=== PATIENT | female | born 1965 | race Caucasian/White ===

== ENCOUNTER 2023-10-31 11:45 | Observation (INO) | payer BC, SELFPAY ==
[2023-10-31] VITALS (33 sets, daily range): BP systolic 133–179; BP diastolic 75–120; PULSE 63–82; RESP 11–23; TEMP 36.1–36.8; O2SAT 95–100; BMI 49.4
--- NOTE | ~2023-10-31 | CT_ITS ---
EXAMINATION: CT abdomen pelvis w con DATE: 11/01/2023 09:14 INDICATION: Metastatic disease TECHNIQUE: Computed tomography (CT) of the abdomen and pelvis was performed with 100 cc Omnipaque 350 intravenous contrast. The dose-length product was 1687.26 mGy-cm. Automated exposure control and ite rative reconstruction technique were employed. COMPARISON: CT dated 10/31/2023. FINDINGS: There are innumerable pulmonary nodules in the lung bases, consistent with metastatic disea se. There is hilar and subcarinal lymphadenopathy. There are enlarged gastrohepatic and portacaval as well as retroperitoneal lymph nodes in the upper abdomen. There are multiple hypovascular lesions of the spleen, suspicious for metastatic disease. Fatty infiltration of the liver. No focal hepatic mas ses. The pancreas is atrophic. The adrenal glands and kidneys are unremarkable. Status post cholecyst ectomy. Nonobstructive bowel gas pattern. Normal appendix. Colonic diverticulosis without evidence fo r diverticulitis. Mild lower thoracic and lumbar spondylosis. IMPRESSION: 1. Innumerable bilateral pulmonary nodules of the lung bases, mediastinal/hilar lymphadenopathy, uppe r abdominal lymphadenopathy and multiple hypovascular lesions of the spleen, compatible with metastat ic disease of uncertain origin. Reviewed, dictated and finalized at location B. ERY CONTAINER FINISHING HAND IMPRESSION: 1. Innumerable bilateral pulmonary nodules of the lung bases, mediastinal/hilar lymphadenopathy, upper abdominal lymphadenopathy and multiple hypovascular les ions of the spleen, compatible with metastatic disease of uncertain origin.
--- NOTE | ~2023-10-31 | CT_ITS ---
EXAMINATION: CTA chest PE protocol DATE: 10/31/2023 13:50 COOK VACUUM KETTLE INDICATION: Chest pain TECHNIQUE: Computed tomographic angiography (CTA) of the chest was performed with 100 mL Omnipaque-35 0 intravenous contrast. The dose-length product was 915.85 mGy-cm. Maximum intensity projection 3D-re constructions of the aorta and other arteries were constructed by the technologist on a separate work station. Automated exposure control and iterative reconstruction technique were employed. COMPARISON: Chest dated 10/31/2023 FINDINGS: Study is technically adequate without evidence for pulmonary embolism. Heart size normal. S mall hiatal hernia with thickening of the distal esophagus. There is mediastinal and hilar lymphadeno john. There are abnormal lymph nodes in the prevascular space. No significant pleural or pericardial effusion. There is pancreatic atrophy. There is lymphadenopathy along the gastrohepatic ligament, po rtacaval, periaortic locations. Status post cholecystectomy. There are in numerable pulmonary nodules bilaterally. Mild thoracic spondylosis with accentuated kyphosis. IMPRESSION: 1. Innumerable small bilateral pulmonary nodules bilaterally, consistent with metastatic disease. The re is mediastinal, bilateral hilar and upper abdominal lymphadenopathy as well, also suspicious for m etastatic disease. Correlate for history of known malignancy. 2: No evidence for pulmonary embolism. Reviewed, dictated and finalized at location L. VACUUM KETTLE IMPRESSION: 1. Innumerable small bilateral pulmonary nodules bilaterally, consistent with m etastatic disease. There is mediastinal, bilateral hilar and upper abdominal ly mphadenopathy as well, also suspicious for metastatic disease. Correlate for hi story of known malignancy. 2: No evidence for pulmonary embolism.
--- NOTE | ~2023-10-31 | XR_ITS ---
XR chest 2V 10/31/2023 12:52 Indication: Left-sided chest pain. Hypertension. Procedure: AP and lateral views of the chest Comparison: No prior studies for comparison. Findings: Heart size normal. There is mild interstitial edema. No pleural effusion or pneumothorax. N o acute osseous abnormality. Impression: 1: Mild interstitial edema. Reviewed, dictated and finalized at location L. IN HOUSEKEEPER NANNY Impression: 1: Mild interstitial edema.
--- NOTE | 2023-10-31 11:47 | ECG_ITS ---
Measurements Intervals [place] Rate: 65 P: 50 SC: 165 QRS: 7 QRSD: 94 T: 75 QT: 430 QTc: 447 Interpretive Statements SINUS RHYTHM DELAYED PRECORDIAL R/S TRANSITION LEFT VENTRICULAR HYPERTROPHY WITH ST-T CHANGE CONSIDER INFERIOR INFARCT, AGE INDETERMINATE ABNORMAL ECG NO PREVIOUS ECG AVAILABLE FOR COMPARISON Electronically Signed On 10-31-2023 12:49:01 STEEL FABRICATOR by Renaldo Doherty D.O.
[2023-10-31 12:07] LABS: Basophils Absolute Auto 0.1 K/mm3 (0.0-0.1); Basophils Percent Auto 0.8 % (0.2-1.2); Eosinophils Absolute Auto 0.4 K/mm3 (0-0.3); Eosinophils Percent Auto 4.1 % (0-4.4); Hematocrit 41.2 % (37.0-47.0); Hemoglobin 13.4 g/dL (12.0-15.0); Immature Granulocyte Absolute 0.02 K/mm3 (0.00-0.031); Immature Granulocyte Percent A 0.2 % (0-0.5); Lymphocytes Absolute Auto 3.42 K/mm3 (0.9-3.2); Lymphocytes Percent Auto 35.4 % (18.3-44.2); Mean Corpuscular HGB Conc 32.5 g/dl (32-36); Mean Corpuscular Hemoglobin 28.5 pg (26-34); Mean Corpuscular Volume 87.7 fl (80-100); Monocytes Absolute Auto 0.9 K/mm3 (0.1-0.6); Monocytes Percent Auto 9.2 % (2.6-8.5); Neutrophils Absolute Auto 4.9 K/mm3 (1.3-6.7); Neutrophils Percent Auto 50.3 % (45.5-73.1); Platelet Count Result 394 k/mm3 (150-375); Red Cell Distribution Width 13.3 % (11.5-14.5); White Blood Count 9.7 K/mm3 (4.5-10.0)
[2023-10-31 12:16] LABS: Alanine Aminotransferase 24 U/L (6-35); Albumin Level 4.6 g/dL (3.5-5.1); Alkaline Phosphatase 137 U/L (38-126); Anion Gap 12 mmol/L (8-16); Aspartate Amino Transferase 27 U/L (14-36); Bilirubin,Total 0.5 mg/dL (0.2-1.3); Blood Urea Nitrogen 18 mg/dL (7-17); Calcium 9.6 mg/dL (8.4-10.2); Carbon Dioxide 23 mmol/L (22-30); Chloride 103 mmol/L (98-107); Estimated CRCL calculation 98 ml/min; Estimated Glomerular Filt Rate > 60; Glucose 125 mg/dL (65-110); Lipase 70 U/L (23-300); Potassium 3.7 mmol/L (3.4-5.0); Sodium 138 mmol/L (137-145)
[2023-10-31 12:22] LABS: Prothrombin Time 13.4 Seconds (11.1-14.7)
[2023-10-31 12:23] LABS: Partial Thromboplastin Time 35.1 SECONDS (22.3-36.8)
[2023-10-31 12:27] LABS: Troponin I < 0.012 ng/mL (0.000-0.034)
--- NOTE | 2023-10-31 12:53 | ED.CHESTPAIN ---
HPI - Chest Pain General Chief Complaint: Chest Pain Stated Complaint: chest pain Time Seen by Provider: 10/31/23 12:09 Source: patient, EMS, RN notes reviewed and old records reviewed Mode of arrival: EMS Limitations: no limitations History of Present Illness HPI narrative: This is a 57 year old female with history of obesity and hypertension who presents for evaluation of chest pain. PAtient states she developed sudden onset midsternal chest pain that radiates to her back. She also reports her left arm went numbness. She took ibuprofen at onset and she denies having any relief. EMS gave patient nitro and aspirin 324 mg PO. She reports her pain has improved to 2/10. MD complaint: chest heaviness Related Data Home Medications Medication Instructions Recorded Confirmed fexofenadine 180 mg tablet 180 mg PO .QD 03/21/23 06/21/23 ([facility]) sumatriptan succinate 100 mg tablet See Rx Instructions PO .COMPLEX 03/21/23 06/21/23 Allergies Allergy/AdvReac Type Severity Reaction Status Date / Time No Known Allergies Allergy Verified 10/31/23 11:55 Review of Systems Constitutional: Constitutional: Denies weakness Cardiovascular: Cardiovascular: Reports chest pain, Denies syncope, Denies rapid heart rate, Denies irregular heart rhythm, Denies leg edema, Reports radiating jaw, neck or arm pain and Denies dyspnea Respiratory: Respiratory: Denies chest congestion, Denies hemoptysis, Denies excessive phlegm production and Denies dyspnea Gastrointestinal: Gastrointestinal: Denies abdominal pain, Denies hematochezia, Denies diarrhea and Denies vomiting Genitourinary: Genitourinary: Denies hematuria and Denies dysuria Musculoskeletal: Musculoskeletal: Denies joint swelling, Denies loss of height and Denies muscle weakness Neurologic: Denies syncope, Denies focal weakness and Denies weakness PMFSH Past Medical History Medical History BMI 45.0-49.9, adult Hypertension Surgical History Surgical History H/O tooth extraction History of cholecystectomy History of eye surgery History of tonsillectomy and adenoidectomy Family History Family History (Updated 06/21/23 @ 08:07 by Jocelyne Donahue Josephine) Father Mother No problems noted. Sibling No problems noted. Other Alcohol abuse Hypertension Social History Social History Smoking status: Never smoker Second hand tobacco smoke exposure: Yes Alcohol intake: current Substance use: never Substance use type: does not use Lack of Transportation: No Lack of Food: Never True Current Housing: I Have Housing Concerned About Future Housing: No Difficulty Paying Gas/Electric Bills: No Difficulty Paying for Meds: No Currently Unemployed: No Education: Trade/Vocational Certificate Difficulty w/ Childcare or Family Care: No Living arrangements: with family Occupation/Education: occupation Additional occupation/education comments: logistics manager Gender identity (if verbalized by the patient): Female Exam Const: General: alert Nutritional Appearance: obese Orientation/consciousness: patient oriented x3 Other: patient is tearful HENMT: Head: normal to inspection Face/Nose/Sinus: Normal external nose present Mouth: Yes Normal oral and palatal mucosa present, Yes lip normal and Yes moist mucous membranes Eyes: EOM: EOMs intact bilaterally Chest: Chest palpation & inspection: normal inspection of the chest Resp: Effort & Inspection: normal respiratory effort Auscultation: clear to auscultation bilaterally Cardio: Rate: regular rate Rhythm: regular rhythm Heart sounds: no murmurs GI: GI Palp: Yes Soft to palpation, No Tenderness to palpation present (GI), No Guarding due to palpation present (GI) and No Rigid due to palpation
[2023-10-31] MEDS: NITROGLYCERIN OINTMENT 1 INCH DOSE TRANSDERM ×2 (13:03→18:21)
[2023-10-31 13:24] LABS: D Dimer 0.61 ug/mL (<0.48)
[2023-10-31 13:51] LABS: NT Pro B Type Natriuretic Pept 250 pg/mL (19.9-100)
[2023-10-31 15:19] LABS: Troponin I < 0.012 ng/mL (0.000-0.034)
[2023-10-31 18:28] LABS: Troponin I < 0.012 ng/mL (0.000-0.034)
--- NOTE | 2023-10-31 20:41 | PM.IMHP ---
H&P: HPI History of Present Illness Date/Time: 10/31/23 20:41 Chief Complaint: Chest pain Narrative: EXAMINATION: CTA chest PE protocol DATE: 10/31/2023 13:50 ELECTROMECHANICAL TECHNICIAN INDICATION: Chest pain TECHNIQUE: Computed tomographic angiography (CTA) of the chest was performed with 100 mL Omnipaque-350 intravenous contrast. The dose-length product was 915.85 mGy-cm. Maximum intensity projection 3D-reconstructions of the aorta and other arteries were constructed by the technologist on a separate workstation. Automated exposure control and iterative reconstruction technique were employed. COMPARISON: Chest dated 10/31/2023 FINDINGS: Study is technically adequate without evidence for pulmonary embolism. Heart size normal. Small hiatal hernia with thickening of the distal esophagus. There is mediastinal and hilar lymphadenopathy. There are abnormal lymph nodes in the prevascular space. No significant pleural or pericardial effusion. There is pancreatic atrophy. There is lymphadenopathy along the gastrohepatic ligament, portacaval, periaortic locations. Status post cholecystectomy. There are in numerable pulmonary nodules bilaterally. Mild thoracic spondylosis with accentuated kyphosis. IMPRESSION: 1. Innumerable small bilateral pulmonary nodules bilaterally, consistent with metastatic disease. There is mediastinal, bilateral hilar and upper abdominal lymphadenopathy as well, also suspicious for metastatic disease. Correlate for history of known malignancy. 2:? No evidence for pulmonary embolism. [facility] Past Medical History Medical History BMI 45.0-49.9, adult Hypertension Surgical History Surgical History H/O tooth extraction History of cholecystectomy History of eye surgery History of tonsillectomy and adenoidectomy Family History Family History (Updated 06/21/23 @ 08:07 by Jocelyne Donahue [facility]) Father Mother No problems noted. Sibling No problems noted. Other Alcohol abuse Hypertension Social History Social History Smoking status: Never smoker Second hand tobacco smoke exposure: Yes Alcohol intake: current Substance use: never Substance use type: does not use Lack of Transportation: No Lack of Food: Never True Current Housing: I Have Housing Concerned About Future Housing: No Difficulty Paying Gas/Electric Bills: No Difficulty Paying for Meds: No Currently Unemployed: No Education: Decline to Answer Difficulty w/ Childcare or Family Care: No Living arrangements: with family Occupation/Education: occupation Additional occupation/education comments: manager transit Gender identity (if verbalized by the patient): Female Spiritual care concerns: No Meds Home Medications and Allergies Home Medications Medication Instructions Recorded Confirmed Type acetaminophen 500 mg tablet 1,000 mg PO Q6H PRN pain/headache 10/31/23 10/31/23 History amlodipine 5 mg tablet 5 mg PO HS hypertension 10/31/23 10/31/23 History gabapentin 600 mg tablet 1,200 mg PO HS 10/31/23 10/31/23 History metoprolol succinate 100 mg 100 mg PO HS 10/31/23 10/31/23 History tablet,extended release 24 hr Allergies Allergy/AdvReac Type Severity Reaction Status Date / Time No Known Allergies Allergy Verified 10/31/23 11:55 Vital Signs Vital Signs - 24 hr 10/31/23 11:47 10/31/23 11:54 10/31/23 11:51 Temperature 98.3 F Pulse Rate 72 70 72 Respiratory Rate 15 16 Blood Pressure 163/86 H Pulse Oximetry 97 100 Oxygen Delivery Room Air 10/31/23 11:52 10/31/23 12:06 10/31/23 12:15 Temperature Pulse Rate 73 76 65 Respiratory Rate 23 H 18 12 Blood Pressure 163/86 H Pulse Oximetry 100 98 97 Oxygen Delivery 10/31/23 12:36 10/31/23 13:01 10/31/23 13:53 Temperature Pulse Rate 67 66 73 R
[2023-10-31] MEDS: ACETAMINOPHEN 325 MG TABLET 650 MG PO (21:28)
--- NOTE | 2023-10-31 22:16 | ADMGEN ---
[id number] This patient, Gina May, was admitted to IMU Room 205-01. Patient/family oriented to hospital policies and general routines including ID bracelet, bed and alarms, visiting hours, pain management, procedures, bathroom and other care routines, personal items, smoking policy, room service/diet, and visiting hours. Information on how to activate the Rapid Response Team has been discussed. Patient/Family are encouraged to report perceived risks to care and to ask questions if they do not understand what they are told or what they should do.
[2023-11-01] VITALS (17 sets, daily range): BP systolic 114–181; BP diastolic 56–79; PULSE 63–94; RESP 12–20; TEMP 36.6–36.8; O2SAT 94–98
[2023-11-01] MEDS: ACETAMINOPHEN 500 MG TABLET 1000 MG PO ×2 (01:22→20:23)
[2023-11-01] MEDS: METOPROLOL SUCCINATE EXT REL 100 MG TABCR PO ×2 (01:26→20:24)
--- NOTE | 2023-11-01 07:52 | PM.IMPN ---
Progress Note: A&P Assessment and Plan (1) Chest pain: Qualifiers: Chest pain type: unspecified Qualified Code(s): R07.9 - Chest pain, unspecified Code(s): R07.9 - Chest pain, unspecified Status: Acute Assessment and Plan: Trend troponins, monitor telemetry CTA concerning for metastatic disease, consult Hematology/Oncology Check CT abd/pelvis (2) Neuropathy: Code(s): G62.9 - Polyneuropathy, unspecified Status: Acute Assessment and Plan: Unchanged (3) Hypothyroid: Code(s): E03.9 - Hypothyroidism, unspecified Status: Acute Assessment and Plan: Check TSH (4) Hypertension: Qualifiers: Hypertension type: unspecified Qualified Code(s): I10 - Essential (primary) hypertension Code(s): I10 - Essential (primary) hypertension Status: Acute Assessment and Plan: Continue home antihypertensives Blood pressures reviewed 11/01 (5) BMI 45.0-49.9, adult: Code(s): Z68.42 - Body mass index [BMI] 45.0-49.9, adult Status: Acute Assessment and Plan: Lifestyle and diet modifications Plan DVT prophylaxis with SCDs GI prophylaxis not indicated Code status full code Subjective Date/time seen: 11/01/23 07:52 Interval history: 57-year-old female with history of hypertension presenting with chest pain and currently being worked up for possible metastatic disease. No overnight events noted. No chest pain or shortness of breath. No nausea, vomiting or diarrhea. No fevers or chills. States she feels much better than yesterday. Review of Systems Review of Systems: 12 point review of systems was assessed and was negative except as noted in the HPI Exam Narrative: General: No acute distress, alert and oriented per baseline HEENT: Atraumatic, normocephalic, mucous membranes moist CV: Regular rate and rhythm, S1, S2 Lungs: Clear to auscultation bilaterally, no rales or crackles noted, no wheezes, good air entry Abdomen: Soft, nontender, nondistended Extremities: Normal to inspection Skin: No rashes noted, no lesions or wounds seen Psych: Euthymic, normal affect Objective Data Vital Signs Vital Signs: Vital Signs - 24 hr 10/31/23 11:47 10/31/23 11:54 10/31/23 11:51 Temperature 98.3 F Pulse Rate 72 70 72 Respiratory Rate 15 16 Blood Pressure 163/86 H Pulse Oximetry 97 100 Oxygen Delivery Room Air 10/31/23 11:52 10/31/23 12:06 10/31/23 12:15 Temperature Pulse Rate 73 76 65 Respiratory Rate 23 H 18 12 Blood Pressure 163/86 H Pulse Oximetry 100 98 97 Oxygen Delivery 10/31/23 12:36 10/31/23 13:01 10/31/23 13:53 Temperature Pulse Rate 67 66 73 Respiratory Rate 11 L 14 15 Blood Pressure 171/78 H Pulse Oximetry 96 96 97 Oxygen Delivery 10/31/23 14:00 10/31/23 14:01 10/31/23 14:33 Temperature Pulse Rate 80 77 67 Respiratory Rate 16 18 13 Blood Pressure 157/76 H Pulse Oximetry 99 99 99 Oxygen Delivery 10/31/23 14:47 10/31/23 15:07 10/31/23 15:15 Temperature Pulse Rate 78 69 67 Respiratory Rate 15 13 16 Blood Pressure Pulse Oximetry 99 97 99 Oxygen Delivery 10/31/23 15:16 10/31/23 15:57 10/31/23 16:00 Temperature Pulse Rate 63 69 73 Respiratory Rate 16 17 17 Blood Pressure 166/78 H 154/79 H Pulse Oximetry 97 96 98 Oxygen Delivery 10/31/23 16:01 10/31/23 17:25 10/31/23 17:30 Temperature Pulse Rate 63 79 73 Respiratory Rate 13 14 20 Blood Pressure 179/91 H Pulse Oximetry 97 Oxygen Delivery 10/31/23 17:45 10/31/23 17:48 10/31/23 18:00 Temperature Pulse Rate 74 73 79 Respiratory Rate 18 19 16 Blood Pressure 133/120 H Pulse Oximetry 97 98 96 Oxygen Delivery 10/31/23 18:46 10/31/23 18:47 10/31/23 19:02 Temperature Pulse Rate 72 82 76 Respiratory Rate 19 14 22 H Blood Pressure 152/84 H Pulse Oximetry 97 99 96 Oxygen Delivery 10/31
[2023-11-01] MEDS: ASPIRIN 81 MG CHEWABLE TABLET PO (09:56)
--- NOTE | 2023-11-01 11:52 | PM.CNCAR ---
Assessment and Plan Assessment and plan (1) Chest pain: Qualifiers: Chest pain type: unspecified Qualified Code(s): R07.9 - Chest pain, unspecified Code(s): R07.9 - Chest pain, unspecified Status: Acute Plan this is a 57-year-old lady with a sudden onset of sharp noncardiac sounding chest pain yesterday. Despite ongoing symptoms since yesterday her evaluation shows no myocardial injury. Her electrocardiogram was benign and 3 sets of troponin levels are negative. Unfortunately her chest CT shows findings that are highly suspicious of metastatic disease. I suppose I would be most concerned about lymphangitic spread of a malignant process given the innumerable nodules that are identified. In this setting I do not believe we need to proceed with any additional cardiac evaluation. Please call me if you have any questions about this opinion Steve Celis MD [facility] History of Present Illness History of Present Illness Consult date/time: 11/01/23 11:52 Reason For Visit: Chest Pain/Pulmonary Nodules Narrative: this is a 57-year-old woman I am seeing today at the request of the hospitalist because of chest pain. She is unknown to me prior to this encounter/ consultation. Patient is not known to have any cardiac problems prior to this. She came to the emergency room yesterday because of the sudden onset of relatively severe central chest pain. She describes this as a sharp central chest discomfort with some radiation into her left shoulder. The discomfort was quite severe and so he came to the emergency room for evaluation. Her ER evaluation cardiac owens has been unremarkable with unremarkable looking electrocardiograms and she has had 3 sets of troponins done that are negative for any evidence of myocardial injury. Her evaluation included a chest CT obviously looking for pulmonary emboli. This was excluded however she was found to have some hilar lymphadenopathy as well as innumerable small nodules throughout both lung ruelas. As result of this she was hospitalized. She does not have any prior history of exertional chest pain she denies any symptoms of orthopnea PND or accumulating edema. She is morbidly obese with a BMI of 49. Her past medical history is remarkable for hypertension as well as a history of peripheral neuropathy. Because of the findings of her chest CT an oncology consult has also been requested. Review of Systems Constitutional: Constitutional: Reports no additional constitutional complaints Eyes: Eyes: Reports no additional eye complaints ENT: Reports system reviewed and no additional complaints, except as documented Cardiovascular: Cardiovascular: Reports as per HPI Respiratory: Respiratory: Reports dyspnea on exertion Gastrointestinal: Gastrointestinal: Reports no additional gastrointestinal complaints Musculoskeletal: Musculoskeletal: Reports back pain Integumentary/Breasts: Skin/Breast: Reports system reviewed and no additional complaints, except as docu Neurologic: Reports system reviewed and no additional complaints, except as documented Endocrine: Endocrine: Reports no additional endocrine complaints Hematologic/Lymphatic: Hematologic/Lymphatic: Reports no additional hematologic/lymphatic complaints Allergic/Immunologic: Allergic/Immunologic: Reports no additional allergic/immunologic complaints PMFSH Past Medical History Medical History BMI 45.0-49.9, adult Hypertension Surgical History Surgical History H/O tooth extraction History of cholecystectomy History of eye surgery History of tonsillectomy and adenoidectomy Family History Family History (Updated 06/21/23 @ 08:07 by FREYA Kim) Father Mother No problems noted. Sibling No problems noted. Other Alcohol abuse Hypertension Social History Socia
--- NOTE | 2023-11-01 15:53 | PDONCCN ---
HPI - Date of Consult Date/Time: 11/01/23 17:51 <NatalioSureshSarah - 11/01/23 17:53> 11/01/23 15:53 <Su Jernigan 11/01/23 16:02> Requesting Physician: Kristen Puentes DO <NatalioSuresh VarmaSarah - 11/01/23 17:53> Kristen Puentes DO <RereSu 11/01/23 16:02> Primary Care Provider: Jared Bronson MD <Suresh Lance AvaniSarah - 11/01/23 17:53> Jared Bronson MD <RereSu 11/01/23 16:02> - Consult Narrative Reason for consult: Lymphadenopthy <RereSu 11/01/23 16:02> Narrative: Gina May is a 57 year old female <Natalio,Suresh Terrell - 11/01/23 17:53> Gina May is a 57 year old female with a past medical history of HTN, hypothyroidism, and obesity. She was admitted to the hospital after reporting chest pain that radiates to the back that started [address] scan shows innumerable bilateral pulmonary nodules of the lung bases, mediastinal/hilar lymphadenopathy, upper abdominal lymphadenopathy and multiple hypovascular lesions of the spleen, compatible with metastatic disease of uncertain origin. She denies a history of smoking, weight loss, fever, chills, night sweats. No family history of cancer. She complains of severe heart burn in the last 3 weeks and was told to take omeprazole. Her last colonoscopy was 7 years ago and was normal. She has also been having headaches. <Su Jernigan 11/01/23 16:02> Review of Systems - Review of Systems All systems reviewed & are unremarkable except as noted in HPI and bel <RereSu 11/01/23 16:02> - Cardiovascular Reports chest pain [facility] 11/01[facility] 16:[facility]> - Respiratory Reports dyspnea on exertion [facility] 11/01/23 16:02> - Gastrointestinal Reports dyspepsia [facility] 11/01/23 16:02> - Neurologic Reports system reviewed and no additional complaints, except as documented, Denies syncope, Denies focal weakness, Denies weakness <RereSu - 11/01/23 16:02> [facility] Medical History: Medical History (Last Reviewed 10/31/23 @ 20:43 by Sugar Silva MD) BMI 45.0-49.9, adult Hypertension <NatalioSureshnadeem Tejada - 11/01/23 17:53> Medical History (Last Reviewed 10/31/23 @ 20:43 by Sugar Silva MD) BMI 45.0-49.9, adult Hypertension <Su Jernigan - 11/01/23 16:02> Surgical History: Surgical History (Last Reviewed 10/31/23 @ 20:43 by Sugar iSlva MD) H/O tooth extraction History of cholecystectomy History of eye surgery History of tonsillectomy and adenoidectomy <Suresh Lance - 11/01/23 17:53> Surgical History (Last Reviewed 10/31/23 @ 20:43 by Sugra Silva MD) H/O tooth extraction History of cholecystectomy History of eye surgery History of tonsillectomy and adenoidectomy <RereSu - 11/01/23 16:02> Family History: Family History (Last Updated 06/21/23 @ 08:07 by FREYA Kim) Father Mother No problems noted. Sibling No problems noted. Other Alcohol abuse Hypertension <Suresh Lance - 11/01/23 17:53> Family History (Last Updated 06/21/23 @ 08:07 by FREYA Kim) Father Mother No problems noted. Sibling No problems noted. Other Alcohol abuse Hypertension <Su Jernigan - 11/01/23 16:02> - Social History Social History: Social History (Last Reviewed 10/31/23 @ 20:43 by Sugar Silva MD) Gender Identity: Gender identity (if verbalized by the patient): Female Alcohol Use: Alcohol intake: current Substance Use: Substance use: never Substance use type: does not use Others: Spiritual care concerns: No Living Arrangements: Living arrangements: with family Oppucation/Education: Occupation/Education: occupation Smoking Status: Smoking status: Never smoker Second hand tobac
[2023-11-01] MEDS: ONDANSETRON INJ 4 MG/2 ML VIAL IV PUSH (15:55)
--- NOTE | 2023-11-01 16:03 | ECG_ITS ---
Measurements Intervals [place] Rate: 73 P: 57 [place]: 158 QRS: 14 QRSD: 94 T: 81 QT: 414 QTc: 457 Interpretive Statements SINUS RHYTHM WITH OCCASIONAL VENTRICULAR PREMATURE COMPLEXES NONSPECIFIC ST & T-WAVE ABNORMALITY BORDERLINE ECG COMPARED TO ECG 10/31/2023 11:53:01 T-WAVE ABNORMALITY NOW PRESENT Electronically Signed On 11-02-2023 13:50:42 HEAT SEALING MACHINE OPERATOR by Manny Jenkins M.D.
[2023-11-01 16:38] LABS: Troponin I < 0.012 ng/mL (0.000-0.034)
[2023-11-01] MEDS: NITROGLYCERIN OINTMENT 1 INCH DOSE TRANSDERM (17:48)
[2023-11-01] MEDS: LORazepam INJ (*CRX) 2 MG/ML VIAL 1 MG IV PUSH (17:48)
--- NOTE | 2023-11-01 18:14 | PC.NURSE ---
This patient, Gina May, was received from [facility] on 11/01/23 at 1810. Patient/family oriented to unit policies and routines
[2023-11-01] MEDS: GABAPENTIN 400 MG CAPSULE 1200 MG PO (20:23)
[2023-11-01] MEDS: MELATONIN 5 MG TABLET PO (20:23)
[2023-11-01] MEDS: amLODIPine BESYLATE 5 MG TABLET PO (20:24)
[2023-11-02] VITALS (10 sets, daily range): BP systolic 107–142; BP diastolic 47–86; PULSE 54–63; RESP 15–20; TEMP 36.2–37.1; O2SAT 92–98
[2023-11-02 06:04] LABS: Basophils Absolute Auto 0.1 K/mm3 (0.0-0.1); Eosinophils Absolute Auto 0.4 K/mm3 (0-0.3); Eosinophils Percent Auto 4.8 % (0-4.4); Hematocrit 39.3 % (37.0-47.0); Hemoglobin 12.5 g/dL (12.0-15.0); Immature Granulocyte Absolute 0.02 K/mm3 (0.00-0.031); Immature Granulocyte Percent A 0.3 % (0-0.5); Lymphocytes Absolute Auto 2.19 K/mm3 (0.9-3.2); Lymphocytes Percent Auto 30.2 % (18.3-44.2); Mean Corpuscular HGB Conc 31.8 g/dl (32-36); Mean Corpuscular Hemoglobin 28.6 pg (26-34); Mean Corpuscular Volume 89.9 fl (80-100); Mean Platelet Volume 9.4 fl (7.4-10.4); Monocytes Absolute Auto 0.7 K/mm3 (0.1-0.6); Monocytes Percent Auto 9.9 % (2.6-8.5); Neutrophils Absolute Auto 3.9 K/mm3 (1.3-6.7); Neutrophils Percent Auto 53.8 % (45.5-73.1); Platelet Count Result 325 k/mm3 (150-375); Red Blood Count 4.37 M/mm3 (4.2-5.4); Red Cell Distribution Width 13.6 % (11.5-14.5); White Blood Count 7.2 K/mm3 (4.5-10.0)
[2023-11-02 06:18] LABS: Alanine Aminotransferase 19 U/L (6-35); Alkaline Phosphatase 99 U/L (38-126); Anion Gap 9 mmol/L (8-16); Aspartate Amino Transferase 23 U/L (14-36); Bilirubin,Total 0.6 mg/dL (0.2-1.3); Blood Urea Nitrogen 18 mg/dL (7-17); Calcium 9.1 mg/dL (8.4-10.2); Carbon Dioxide 28 mmol/L (22-30); Chloride 101 mmol/L (98-107); Estimated CRCL calculation 95 ml/min; Estimated Glomerular Filt Rate > 60; Glucose 113 mg/dL (65-110); Potassium 3.7 mmol/L (3.4-5.0); Sodium 138 mmol/L (137-145)
--- NOTE | 2023-11-02 07:27 | WPDGICN ---
Assessment and Plan Assessment and plan (1) Chest pain: Qualifiers: Chest pain type: unspecified Qualified Code(s): R07.9 - Chest pain, unspecified Code(s): R07.9 - Chest pain, unspecified Status: Acute Assessment and Plan: Patient with atypical chest pain appears be musculoskeletal in separate from heartburn. Currently being evaluated by primary care service. (2) Heartburn: Code(s): R12 - Heartburn Status: Acute Assessment and Plan: Patient with complaints of heartburn over the last month. Not responsive to intermittent use of [id number] medications. Suggest trial of Prilosec or pantoprazole on a daily basis. EGD requested will be performed today to exclude any other disease. (3) Multiple pulmonary nodules: Code(s): R91.8 - Other nonspecific abnormal finding of lung field Status: Acute Assessment and Plan: Workup in process because of pulmonary nodule suspicious for metastatic disease. I suspect biopsy will be performed. GI Consult Note Consult date/time: 11/02/23 07:27 Reason for consult: Heartburn HPI: Gina May is a 57 year old female I am asked to see because of heartburn. Patient reports heartburn intermittently over the last month. She states that is become more frequent more intense. She has taken [id number] medicines with no relief of symptoms. She does not take any medication on a routine basis. She developed a different sharp pain with radiation to her shoulder that prompted her to come to the emergency room. This was not related to food and not related to her described heartburn. Imaging studies revealed the patient has multiple pulmonary nodules suspicious for metastatic disease. An EGD is requested because of her complaints of heartburn. Review of Systems Review of Systems: Review of systems noncontributory. [facility] Past Medical History Medical History BMI 45.0-49.9, adult Hypertension Surgical History Surgical History H/O tooth extraction History of cholecystectomy History of eye surgery History of tonsillectomy and adenoidectomy Family History Family History (Updated 06/21/23 @ 08:07 by Jocelyne Donahue [facility]) Father Mother No problems noted. Sibling No problems noted. 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 Gender identity (if verbalized by the patient): Female Spiritual care concerns: No Meds Home Medications and Allergies Home Medications Medication Instructions Recorded Confirmed Type acetaminophen 500 mg tablet 1,000 mg PO Q6H PRN pain/headache 10/31/23 10/31/23 History amlodipine 5 mg tablet 5 mg PO HS hypertension 10/31/23 10/31/23 History gabapentin 600 mg tablet 1,200 mg PO HS 10/31/23 10/31/23 History metoprolol succinate 100 mg 100 mg PO HS 10/31/23 10/31/23 History tablet,extended release 24 hr Allergies Allergy/AdvReac Type Severity Reaction Status Date / Time No Known Allergies Allergy Verified 10/31/23 11:55 Vital Signs Vital Signs - 24 hr 11/01/23 07:29 11/01/23 08:00 11/01/23 08:00 Temperature 97.8 F Pulse Rate 65 71 Respiratory
--- NOTE | 2023-11-02 08:33 | WPDANESEPPF ---
Anes - Initial Pre Proc Eval Procedure: Operation Date: 11/02/23 08:30 Proposed Procedures p Esophagogastroduodenoscopy - Ramon Dodson MD Date/Time: 11/02/23 08:33 Surgeon: Kristen Puentes DO Pre Op Diagnosis: Chest Pain/Pulmonary Nodules Patient Data Age: 57 Gender: F Height: 1.65 m Weight: 132.4 kg Last Vital Signs Temp 37.1 C 11/02/23 04:00 Pulse 55 L 11/02/23 04:00 Resp 20 11/02/23 04:00 BP 135/65 11/02/23 04:00 Pulse Ox 98 11/02/23 04:00 O2 Del Method Room Air 11/01/23 18:15 Allergies Allergy/AdvReac Type Severity Reaction Status Date / Time No Known Allergies Allergy Verified 10/31/23 11:55 Home Medications Medication Instructions Recorded Confirmed Type acetaminophen 500 mg tablet 1,000 mg PO Q6H PRN pain/headache 10/31/23 10/31/23 History amlodipine 5 mg tablet 5 mg PO HS hypertension 10/31/23 10/31/23 History gabapentin 600 mg tablet 1,200 mg PO HS 10/31/23 10/31/23 History metoprolol succinate 100 mg 100 mg PO HS 10/31/23 10/31/23 History tablet,extended release 24 hr Laboratory Tests 11/01/23 11/02/23 16:10 04:40 WBC 7.2 K/mm3 (4.5-10.0) RBC 4.37 M/mm3 (4.2-5.4) Hgb 12.5 g/dL (12.0-15.0) Hct 39.3 % (37.0-47.0) MCV 89.9 fl (80-100) MCH 28.6 pg (26-34) MCHC 31.8 L g/dl (32-36) RDW 13.6 % (11.5-14.5) Plt Count 325 k/mm3 (150-375) MPV 9.4 fl (7.4-10.4) Immature Gran % (Auto) 0.3 % (0-0.5) Neut % (Auto) 53.8 % (45.5-73.1) Lymph % (Auto) 30.2 % (18.3-44.2) [place] % (Auto) 9.9 H % (2.6-8.5) Eos % (Auto) 4.8 H % (0-4.4) Baso % (Auto) 1.0 % (0.2-1.2) Lymph # (Auto) 2.19 K/mm3 (0.9-3.2) [place] # (Auto) 0.7 H K/mm3 (0.1-0.6) Eos # (Auto) 0.4 H K/mm3 (0-0.3) Baso # (Auto) 0.1 K/mm3 (0.0-0.1) Abs Immat Gran (auto) 0.02 K/mm3 (0.00-0.031) Absolute Neuts (auto) 3.9 K/mm3 (1.3-6.7) Absolute Nucleated RBC 0.0 K/mm3 (0.0-0.012) Nucleated RBC % 0.0 % (0.0-0.2) Sodium 138 mmol/L (137-145) Potassium 3.7 mmol/L (3.4-5.0) Chloride 101 mmol/L (98-107) Carbon Dioxide 28 mmol/L (22-30) Anion Gap 9 mmol/L (8-16) BUN 18 H mg/dL (7-17) Creatinine 0.80 mg/dL (0.7-1.0) Estim Creat Clear Calc 95 ml/min Estimated GFR > 60 (59 - ) Glucose 113 H mg/dL (65-110) Calcium 9.1 mg/dL (8.4-10.2) Total Bilirubin 0.6 mg/dL (0.2-1.3) AST 23 U/L (14-36) ALT 19 U/L (6-35) Alkaline Phosphatase 99 U/L (38-126) Troponin I < 0.012 ng/mL (0.000-0.034) Total Protein 7.0 g/dL (6.3-8.2) Albumin 4.0 g/dL (3.5-5.1) Angiotensin Convert Enz Pending Patient hx anesthesia problems: none Family hx anesthesia problems: none Results Review: All pre-operative results and documents have been reviewed as part of the pre-operative evaluation. [facility] Past Medical History Medical History (Updated 11/02/23 @ 08:34 by Surjit Clarke, ) BMI 45.0-49.9, adult Hypertension Hypothyroid Multiple pulmonary nodules TMJ (temporomandibular joint syndrome) Surgical History Surgical History (Updated 11/01/23 @ 16:02 by Su Jernigan APRN) H/O tooth extraction History of cholecystectomy History of eye surgery History of tonsillectomy and adenoidectomy Family History Family History (Updated 06/21/23 @ 08:07 by Jocelyne Donahue Josephine) Father Mother No problems noted. Sibling No problems noted. Other Alcohol abuse Hypertension Social History Social History Smoking status: Never smoker Second hand tobacco smoke exposure: Yes Alcohol intake: current Substance use: never Substance use type: does not use Lack of Transportation:
--- NOTE | 2023-11-02 08:35 | PC.NURSE ---
To GI Lab. Report given to SUJATHA Harrell.
[2023-11-02] MEDS: LACTATED RINGERS 1,000 ML 150 ML IV CONT (09:02)
--- NOTE | 2023-11-02 09:20 | PC.NURSE ---
Returned from GI Lab. Report received from SUJATHA Harrell
[2023-11-02] MEDS: ASPIRIN 81 MG CHEWABLE TABLET PO (10:53)
[2023-11-02] MEDS: PANTOPRAZOLE 40 MG TABLET PO (10:53)
--- NOTE | 2023-11-02 12:43 | PM.DS ---
DS: Admitting Diagnosis Discharge Date 11/02/23 Admitting Diagnosis chest pain DS: Discharge Diagnosis Discharge Diagnosis (1) Chest pain: Qualifiers: Chest pain type: unspecified Qualified Code(s): R07.9 - Chest pain, unspecified Code(s): R07.9 - Chest pain, unspecified Status: Acute Assessment and Plan: Trend troponins, monitor telemetry CTA concerning for metastatic disease, consult Hematology/Oncology Check CT abd/pelvis (2) Neuropathy: Code(s): G62.9 - Polyneuropathy, unspecified Status: Acute Assessment and Plan: Unchanged (3) Hypothyroid: Code(s): E03.9 - Hypothyroidism, unspecified Status: Acute Assessment and Plan: Check TSH (4) Hypertension: Qualifiers: Hypertension type: unspecified Qualified Code(s): I10 - Essential (primary) hypertension Code(s): I10 - Essential (primary) hypertension Status: Acute Assessment and Plan: Continue home antihypertensives Blood pressures reviewed 11/01 (5) BMI 45.0-49.9, adult: Code(s): Z68.42 - Body mass index [BMI] 45.0-49.9, adult Status: Acute Assessment and Plan: Lifestyle and diet modifications Plan DVT prophylaxis with SCDs GI prophylaxis not indicated Code status full code DS: Summary Hospital Course Hospital Course: 57-year-old female with history of hypertension presenting with chest pain and currently being worked up for possible metastatic disease. Cardiology was consulted for her chest pain. Despite ongoing symptoms, their evaluation shows no myocardial injury.? Her electrocardiogram was benign and 3 sets of troponin levels are negative.? Unfortunately her chest CT shows findings that are highly suspicious of metastatic disease.? Cardiology suspected lymphangitic spread of a malignant process given the innumerable nodules that are identified as the etiology to her chest pain.? They did not recommend any additional cardiac evaluation.? Oncology was consulted and recommended outpatient workup to start with PET scan as well mediastinum ectomy with biopsy. Angiotensin-converting enzyme sent. Gastroenterology was consulted and performed an EGD. EGD was essentially normal, they recommended trial of PPI. Please see above and med rec for details. Patient was discharged in stable condition with close outpatient follow-up. Time Spent with Patient Time attestation: Total time spent providing and/or coordinating discharge services: Exam Narrative: General: No acute distress, alert and oriented per baseline HEENT: Atraumatic, normocephalic, mucous membranes moist CV: Regular rate and rhythm, S1, S2 Lungs: Clear to auscultation bilaterally, no rales or crackles noted, no wheezes, good air entry Abdomen: Soft, nontender, nondistended Extremities: Normal to inspection Skin: No rashes noted, no lesions or wounds seen Psych: Euthymic, normal affect DS: Data Data Completed and Pending Labs on day of discharge: Labs from last 24 hours 11/02/23 11/01/23 04:40 16:10 WBC 7.2 RBC 4.37 Hgb 12.5 Hct 39.3 MCV 89.9 MCH 28.6 MCHC 31.8 L RDW 13.6 Plt Count 325 MPV 9.4 Immature Gran % (Auto) 0.3 Neut % (Auto) 53.8 Lymph % (Auto) 30.2 [place] % (Auto) 9.9 H Eos % (Auto) 4.8 H Baso % (Auto) 1.0 Lymph # (Auto) 2.19 [place] # (Auto) 0.7 H Eos # (Auto) 0.4 H Baso # (Auto) 0.1 Abs Immat Gran (auto) 0.02 Absolute Neuts (auto) 3.9 Absolute Nucleated RBC 0.0 Nucleated RBC % 0.0 Sodium 138 Potassium 3.7 Chloride 101 Carbon Dioxide 28 Anion Gap 9 BUN 18 H Creatinine 0.80 Estim Creat Clear Calc 95 Estimated GFR > 60 Glucose 113 H Calcium 9.1 Total Bilirubin 0.6 AST 23 ALT 19 Alkaline Phosphatase 99 Troponin I < 0.012 Total Protein 7.0 Albumin 4.0 Angiotensin Convert Enz Pending Discharge Plan Discharge Atte
[2023-11-05 11:10] LABS: Angiotensin Converting Enzyme 48 U/L (9-67)
== END 2023-11-02 15:45 | disposition home or self-care (01) ==
LOC: ANHED 15:09 → ANHIMU 19:28 → ANH2MED 11-01 18:04
PROVIDERS: Emergency Medicine; Internal Medicine Gastroenterology; Nurse Practitioner Family; Admitting Provider Student in an Organized Health Care Education/Training Program; Emergency Provider General Practice; PCP Family Medicine; Visit Provider Student in an Organized Health Care Education/Training Program
PROC: 0DJ08ZZ Inspection of Upper Intestinal Tract, Via Natural or Artificial Opening Endoscopic (ICD-10-PCS; CPT 43235; principal; 2023-11-02 08:30)
DX: R12 Heartburn (principal); R91.8 Other nonspecific abnormal finding of lung field; G62.9 Polyneuropathy, unspecified; E03.9 Hypothyroidism, unspecified; I10 Essential (primary) hypertension; R94.31 Abnormal electrocardiogram [ECG] [EKG]; R06.09 Other forms of dyspnea; R59.1 Generalized enlarged lymph nodes; E66.01 Morbid (severe) obesity due to excess calories; Z68.42 Body mass index [BMI] 45.0-49.9, adult; F10.90 Alcohol use, unspecified, uncomplicated; Z82.49 Family history of ischemic heart disease and other diseases of the circulatory system; Z79.82 Long term (current) use of aspirin; Z79.899 Other long term (current) drug therapy
CPT/HCPCS: 43239; 36415; 71046; 71275; 74177; 80053; 82164; 83690; 83880; 84484; 85025; 85380; 85610; 85730; 87081; 93005; 96374; 96375; 99285; A9270; G0378; J2060; J2405; J2704; J7120; Q9967

== ENCOUNTER 2023-11-21 08:51 | Outpatient (CLI) | payer BC, SELFPAY ==
--- NOTE | ~2023-11-21 | PE_ITS ---
EXAMINATION: PET skull to mid thigh DATE: 11/21/2023 11:06 INDICATION: Lymphoma TECHNIQUE: Blood glucose level was 103 mg/dL. 10.291 mCi of 18-fluorodeoxyglucose (18-FDG) was admini stered i.v. Low dose computed tomography (CT) images were acquired from the base of the brain to the proximal thighs for attenuation correction and anatomic localization. Positron emission tomography (P ET) images were acquired in the same distribution beginning 57 minutes after injection. The dose-al th product (DLP) was 1422.75 mGy-cm. COMPARISON: 11/01/2023, 10/31/2023 FINDINGS: Head/neck: No abnormal FDG uptake is identified. Mild FDG uptake in the orbits and oral cavity withou t suspicious CT correlate is likely physiologic. Chest: There are enlarged right paratracheal lymph nodes measuring up to 10 mm with abnormal FDG upta ke with an SUV max of 12.5. There is matted bilateral hilar lymphadenopathy with abnormal FDG uptake. In addition, there are normal sized prevascular lymph nodes of the upper mediastinum with abnormal F DG uptake and SUV max of 11.5. There are innumerable perilymphatic nodules of the lungs, generally me asuring 3 to 4 mm, with associated FDG uptake. No pleural effusion or pneumothorax. The heart size is normal. There are mildly enlarged epicardial lymph nodes with mild FDG uptake. Abdomen/pelvis/proximal thighs: There are multiple FDG avid lesions of the spleen corresponding to hy poattenuating masses on the recent comparison CT. There is periportal lymphadenopathy with abnormal F DG uptake and SUV max of 8.0. There are normal-sized retroperitoneal lymph nodes with abnormal FDG up take. A 12 mm aortocaval lymph node demonstrates abnormal FDG uptake. The liver and adrenal glands ar e unremarkable. There is moderate fatty replacement of the pancreas. Changes of cholecystectomy are n oted. The kidneys are unremarkable. No free intraperitoneal gas or evidence of bowel obstruction. Musculoskeletal: No definite abnormal FDG uptake is identified. IMPRESSION: 1. Lymphadenopathy of the chest and abdomen and multiple splenic masses with abnormal FDG uptake, whi ch could reflect lymphoma or possibly sarcoidosis. 2. Innumerable small pulmonary nodules with FDG uptake, with differential including lymphoma and sarc oidosis. Reviewed, dictated and finalized at location L. [facility] IMPRESSION: 1. Lymphadenopathy of the chest and abdomen and multiple splenic masses with ab normal FDG uptake, which could reflect lymphoma or possibly sarcoidosis. 2. Innumerable small pulmonary nodules with FDG uptake, with differential inclu ding lymphoma and sarcoidosis.
[2023-11-21 09:29] LABS: Glucose Point of Care 103 mg/dl (65-105)
== END 2023-11-21 08:52 | disposition home or self-care (01) ==
PROVIDERS: PCP Family Medicine; Visit Provider Internal Medicine Hematology & Oncology
DX: C85.90 Non-Hodgkin lymphoma, unspecified, unspecified site (principal); R91.8 Other nonspecific abnormal finding of lung field
CPT/HCPCS: 78815; A9552

== ENCOUNTER 2024-02-13 09:50 | Outpatient (CLI) | payer BC, SELFPAY ==
--- NOTE | ~2024-02-13 | XR_ITS ---
EXAMINATION: XR abdomen/kub 1V DATE: 02/13/2024 10:04 INDICATION: Unspecified abdominal pain. TECHNIQUE: A supine view of the abdomen on 2 radiographs was obtained. COMPARISON: CT abdomen and pelvis 02/13/2024 FINDINGS: There are no dilated loops of bowel. There are phleboliths in the pelvis. Surgical clips in the right upper quadrant are likely from cholecystectomy. IMPRESSION: 1. Normal bowel gas pattern. Reviewed, dictated and finalized at location A.
--- NOTE | ~2024-02-13 | CT_ITS ---
Non-contrast CT scan of the Abdomen and Pelvis Clinical indication: Abdominal pain Technique: 2.5 mm axial scans were obtained through the abdomen and pelvis without intravenous or or al contrast. Dose reduction technique was used on this scan by utilizing automated exposure control a nd iterative reconstruction technique. The dose-length product (DLP) was 1632.26 mGy-cm. COMPARISON: 11/01/2023 Findings: Images through the lung bases reveal innumerable irregular pulmonary nodules, probably mil dly progressed from prior exam. There is no evidence of renal or ureteral calculi. The kidneys and the ureters are nondilated. The liver, spleen, pancreas, and adrenals appear normal. Cholecystectomy clips present. There is no a ortic aneurysm. There is epigastric and peripancreatic/monique hepatis lymphadenopathy, similar to prio r exam. There is no evidence of bowel obstruction. Images through the pelvis were performed. There is no evidence of ascites. Urinary bladder unremarkab le. No pelvic mass. Impression: Innumerable small irregular bibasilar pulmonary nodules, compatible with metastatic disease, probably mildly progressed from prior exam. Epigastric and monique hepatis/peripancreatic lymphadenopathy, compatible with metastatic disease, yvan lar to prior exam. Reviewed, dictated and finalized at location . Impression: Innumerable small irregular bibasilar pulmonary nodules, compatible with metast atic disease, probably mildly progressed from prior exam. Epigastric and monique hepatis/peripancreatic lymphadenopathy, compatible with me tastatic disease, similar to prior exam.
== END 2024-02-13 09:51 | disposition home or self-care (01) ==
PROVIDERS: PCP Family Medicine; Visit Provider Nurse Practitioner Adult Health
DX: R10.9 Unspecified abdominal pain (principal); R91.8 Other nonspecific abnormal finding of lung field
CPT/HCPCS: 74018; 74176

== ENCOUNTER 2024-03-26 15:38 | Emergency (ER) | payer BC, SELFPAY ==
[2024-03-26] VITALS (13 sets, daily range): BP systolic 145–175; BP diastolic 73–100; PULSE 66–78; RESP 0–22; TEMP 36.4; O2SAT 97–100
--- NOTE | ~2024-03-26 | XR_ITS ---
EXAMINATION: XR shoulder LT min 2V DATE: 03/26/2024 18:10 INDICATION: Left shoulder pain. TECHNIQUE: 4 views of left shoulder were obtained. COMPARISON: Chest CT 03/26/2024 FINDINGS: Bone alignment is normal. No fracture. Glenohumeral joint is normal. There is mild acromioc lavicular joint osteoarthritis. There are innumerable nodules in the lungs. IMPRESSION: 1. Mild acromioclavicular joint osteoarthritis. 2. Innumerable nodules in the lungs, most likely sarcoid. Reviewed, dictated and finalized at location E.
--- NOTE | ~2024-03-26 | XR_ITS ---
EXAMINATION: XR chest 2V DATE: 03/26/2024 16:16 INDICATION: Chest pain. Shortness of breath. Cough. TECHNIQUE: Frontal and lateral views of the chest were obtained. COMPARISON: Chest 2 views 10/31/2023, CT abdomen and pelvis 02/13/2024, chest CT 10/31/23 FINDINGS: There are widespread nodules in the lungs with a perihilar predominance.. No pleural effusi on or pneumothorax. The heart size is normal. Surgical clips in the right upper quadrant are likely f rom cholecystectomy. IMPRESSION: 1. Widespread pulmonary nodules with a perihilar predominance, worsened from 10/31/2023. These findin gs are most likely sarcoid. Reviewed, dictated and finalized at location E. IMPRESSION: 1. Widespread pulmonary nodules with a perihilar predominance, worsened from . These findings are most likely sarcoid.
--- NOTE | ~2024-03-26 | CT_ITS ---
EXAMINATION: CTA chest PE protocol DATE: 03/26/2024 17:58 INDICATION: Pleuritic chest pain. TECHNIQUE: Computed tomography angiography (CTA) of the chest was performed with 100 mL Omnipaque-350 intravenous contrast timed to evaluate the pulmonary arteries. Coronal maximum intensity projection 3D-reconstructions were created by the technologist. Automated exposure control and iterative reconst ruction technique were employed. The dose-length product was 938.96 mGy-cm. COMPARISON: Chest CT 10/31/2023 FINDINGS: There are widespread pulmonary nodules in the lungs with a perilymphatic distribution. Calc ified right hilar lymph nodes are consistent with old granulomatous disease. There is mild noncalcifi ed mediastinal and bilateral hilar lymphadenopathy. No pleural effusion. The heart size is normal. No pericardial effusion. There is no pulmonary embolus. Calcifications in the spleen are consistent wit h old granulomatous disease. There are multiple hypodense masses in the spleen measuring up to 4.7 cm . There is mild gastrohepatic, periportal, and periceliac lymphadenopathy. There is mild chronic ante rior wedging of multiple vertebral bodies. There is moderate cervical and thoracic spondylosis. IMPRESSION: 1. No pulmonary embolus. 2. Widespread pulmonary nodules, chest and abdominal lymphadenopathy, and splenic masses with worseni ng from 10/31/2023. These findings are most likely sarcoid. Lymphoma is less likely. Reviewed, dictated and finalized at location E. IMPRESSION: 1. No pulmonary embolus. 2. Widespread pulmonary nodules, chest and abdominal lymphadenopathy, and splen ic masses with worsening from 10/31/2023. These findings are most likely sarcoi d. Lymphoma is less likely.
--- NOTE | 2024-03-26 15:44 | ECG_ITS ---
SEE SCANNED COPY FOR CONFIRMED REPORT MTDD
--- NOTE | 2024-03-26 16:18 | ED.GENADULT ---
HPI - General Adult General Chief complaint: Chest Pain <Daniel Carey PA-C - Last Filed: 03/26/24 16:19> Stated complaint: Chest Pain <Daniel Carey PA-C - Last Filed: 03/26/24 16:19> Time Seen by Provider: 03/26/24 16:17 <Daniel Carey PA-C - Last Filed: 03/26/24 16:19> Focused HPI: This is a 58-year-old female who presents to the ED with chief complaint of chest pain and shortness of breath beginning 3 days ago. Reports that yesterday she was feeling fine but the pain returned today. Unsure of specific exertional component. She has never had chest pain like this before. States the pain radiates down the left arm. Denies syncope, vomiting, sweats. Endorses history of hypertension but no history of HLD or diabetes. Denies fevers, chills, recent illness, abdominal pain, cough. GENERAL: Tearful on exam. HEAD: Normocephalic, atraumatic. CHEST: Clear to auscultation. No respiratory distress. HEART: Regular rate and rhythm. NEURO: Alert and oriented x3. Patient screened in triage and initial orders placed. Additional care and disposition to be based upon diagnostic testing and treatment. <Daniel Carey PA-C - Last Filed: 03/26/24 16:19> Source: patient <Daniel Carey PA-C - Last Filed: 03/26/24 16:19> Mode of arrival: ambulatory <Daniel Carey PA-C - Last Filed: 03/26/24 16:19> Limitations: no limitations <Daniel Carey PA-C - Last Filed: 03/26/24 16:19> History of Present Illness HPI narrative: 58 Year old female with history of obesity, hypertension and recent diagnosis of histoplasmosis presents to emergency department for substernal chest pain that has been intermittent for approximately 3 days. Patient states the pain is in the center of her chest, sharp in nature, pleuritic, worse when she bends over and when she palpates her chest. Patient is reporting exertional dyspnea for quite some time and is also reporting pain to her left shoulder, left arm and left lateral ribs. States has been going on for a while as well, approximately 1 month ago she noticed numbness throughout her left shoulder, left arm and left ribs after feeling a popping sensation while still at rest. States it felt numb for quite a while and then yesterday she began developing pain in this area. The patient was seen in our emergency department on 10/31/2023 for similar sounding chest pain that radiates to her back and reportedly caused left arm numbness. Her CT scan showed concerns for lung cancer with multiple pulmonary nodules. She was admitted for further evaluation. Her troponins were negative, her EKG was benign and Cardiology felt that her pain was not cardiac in nature, therefore the patient did not have any additional cardiac evaluation. She had an EGD performed at that time which was essentially normal and trialed her on a PPI. Patient states her current pain does not feel like heartburn and she denies aggravating or alleviating factors with diet. 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 She follows with a yard warehouse worker at [facility] and is currently in not on any treatment for this. The patient denies known history of CAD for herself. She endorses a family history of CAD with her mother and father. Denies history of diabetes, hyperlipidemia or smoking. <Seble Dutton PA-C - Last Filed: 03/27/24 02:33> Related Data Home medications: Home Medications Medication Instructions Recorded Confirmed acetaminophen 500 mg tablet 1,000 mg PO Q6H PRN pain/headache 10/31/23 02/13/24 gabapentin 600 mg tablet 1,200 mg PO HS 10/31/23 02/13/24 <Daniel Carey PA-C - Last Filed: 03/26/24 16:19> Allergies/adverse reactions: Allergies Allergy/AdvReac Type Severity Reaction Status Date / Time No Known Allergies Allergy Verified 02/13/24
[2024-03-26 17:27] LABS: Basophils Absolute Auto 0.1 K/mm3 (0.0-0.1); Basophils Percent Auto 0.7 % (0.2-1.2); Eosinophils Absolute Auto 0.2 K/mm3 (0-0.3); Eosinophils Percent Auto 2.1 % (0-4.4); Hematocrit 41.6 % (37.0-47.0); Immature Granulocyte Absolute 0.04 K/mm3 (0.00-0.031); Immature Granulocyte Percent A 0.4 % (0-0.5); Lymphocytes Absolute Auto 2.56 K/mm3 (0.9-3.2); Mean Corpuscular HGB Conc 33.7 g/dl (32-36); Mean Corpuscular Hemoglobin 29.5 pg (26-34); Mean Corpuscular Volume 87.8 fl (80-100); Mean Platelet Volume 9.3 fl (7.4-10.4); Monocytes Absolute Auto 0.9 K/mm3 (0.1-0.6); Monocytes Percent Auto 9.7 % (2.6-8.5); Neutrophils Absolute Auto 5.4 K/mm3 (1.3-6.7); Neutrophils Percent Auto 59.1 % (45.5-73.1); Platelet Count Result 372 k/mm3 (150-375); Red Blood Count 4.74 M/mm3 (4.2-5.4); Red Cell Distribution Width 13.3 % (11.5-14.5); White Blood Count 9.1 K/mm3 (4.5-10.0)
[2024-03-26 17:38] LABS: Alanine Aminotransferase 15 U/L (6-35); Albumin Level 4.5 g/dL (3.5-5.1); Alkaline Phosphatase 129 U/L (38-126); Anion Gap 9 mmol/L (4-12); Aspartate Amino Transferase 20 U/L (14-36); Bilirubin,Total 0.5 mg/dL (0.2-1.3); Blood Urea Nitrogen 19 mg/dL (7-17); Calcium 9.7 mg/dL (8.4-10.2); Carbon Dioxide 26 mmol/L (22-30); Chloride 105 mmol/L (98-107); Estimated CRCL calculation 78 ml/min; Estimated Glomerular Filt Rate 57; Glucose 124 mg/dL (65-110); Lipase 50 U/L (23-300); Sodium 140 mmol/L (137-145)
[2024-03-26 17:41] LABS: INR 0.9; Partial Thromboplastin Time 35.2 Seconds (22.3-36.8)
[2024-03-26] MEDS: CYCLOBENZAPRINE HCL 10 MG TABLET PO (17:45)
[2024-03-26] MEDS: LIDOCAINE 5% PATCH 1 PATCH TRANSDERM (17:45)
[2024-03-26 17:49] LABS: Troponin I < 0.012 ng/mL (0.000-0.034)
[2024-03-26 18:10] LABS: NT Pro B Type Natriuretic Pept 189 pg/mL (19.9-100)
[2024-03-26] MEDS: KETOROLAC 15 MG/ML VIAL (*BKC) IV PUSH (20:27)
[2024-03-26 21:18] LABS: Troponin I < 0.012 ng/mL (0.000-0.034)
--- NOTE | 2024-03-26 21:20 | ECG_ITS ---
SEE SCANNED COPY FOR CONFIRMED REPORT MTDD
== END 2024-03-26 22:24 | disposition home or self-care (01) ==
PROVIDERS: Student in an Organized Health Care Education/Training Program; Emergency Provider Physician Assistant; PCP Family Medicine
DX: R07.89 Other chest pain (principal); M94.0 Chondrocostal junction syndrome [Tietze]; R91.8 Other nonspecific abnormal finding of lung field; M25.512 Pain in left shoulder; F41.9 Anxiety disorder, unspecified; I10 Essential (primary) hypertension; E03.9 Hypothyroidism, unspecified; E66.9 Obesity, unspecified; Z68.42 Body mass index [BMI] 45.0-49.9, adult; Z90.49 Acquired absence of other specified parts of digestive tract; Z77.22 Contact with and (suspected) exposure to environmental tobacco smoke (acute) (chronic); M19.012 Primary osteoarthritis, left shoulder; Z79.82 Long term (current) use of aspirin
CPT/HCPCS: 36415; 71046; 71275; 73030; 80053; 83690; 83880; 84484; 85025; 85610; 85730; 93005; 96374; 99284; A9270; J1885; Q9967

== ENCOUNTER 2024-10-22 06:33 | Outpatient (CLI) | payer BC, SELFPAY ==
--- NOTE | ~2024-10-22 | CT_ITS ---
CT of the Abdomen and Pelvis: Indication: Abdominal pain Technique: 2.5 mm axial scans were obtained through the abdomen and pelvis following intravenous adm inistration of 100 cc of Omnipaque 350. Dose reduction technique was used on this scan by utilizing a utomated exposure control and iterative reconstruction technique. The dose-length product (DLP) was 1 331.54 mGy-cm. COMPARISON: 02/13/2024 Findings: Scans through the lung bases are unremarkable. There is diffuse hepatic steatosis. Cholecystectomy clips are present. The spleen, pancreas, adrenals and kidneys are within normal limits. No evidence of aortic aneurysm. No lymphadenopathy. No bowel obstruction or bowel wall thickening. There is no evidence to suggest acute appendicitis. Images through the pelvis were performed. Urinary bladder unremarkable. No adnexal mass seen. No asci jorge. Impression: No acute abnormalities seen. Diffuse hepatic steatosis. Reviewed, dictated and finalized at [facility]. GENCY MEDICINE MEDICAL DIRECTOR Impression: No acute abnormalities seen. Diffuse hepatic steatosis.
[2024-10-22 07:09] LABS: Estimated Glomerular Filt Rate 57
== END 2024-10-22 06:34 | disposition home or self-care (01) ==
PROVIDERS: PCP Family Medicine
DX: R10.32 Left lower quadrant pain (principal); R63.4 Abnormal weight loss; K76.0 Fatty (change of) liver, not elsewhere classified
CPT/HCPCS: 74177; Q9967

== ENCOUNTER 2025-08-11 16:13 | Outpatient (CLI) | payer BC, SELFPAY ==
--- NOTE | ~2025-08-11 | XR_ITS ---
XR lumbar spine 2-3V Indication: acute back with sciatica started 1 week ago Comparison: None Findings: The vertebral heights are intact. No fracture or subluxation. Moderate loss of disc at L5-S1 Soft tissues unremarkable Impression: No acute abnormality. Reviewed, dictated and finalized at location A. Impression: No acute abnormality.
--- OUTSIDE RECORDS SUMMARY | 2025-08-11 16:17 | XMS_ITS | Clinical Summary ---
Author Organization [facility] Randolph Mosqueda Address [address] [place] [address] Care Team Providers Care Customer Success Specialist Name Role Phone Jared Bronson MD Primary Care Provider [phone] Allergies No known active allergies Medications amLODIPine (NORVASC) 5 mg tablet Take 5 mg by mouth daily. 01/24/2023 Active gabapentin (NEURONTIN) 600 mg tablet TAKE 1 TABLET(600 MG) BY MOUTH TWICE DAILY 05/29/2023 Active metoprolol succinate (TOPROL XL) 100 mg Extended Release 24 hour tablet Take 100 mg by mouth daily. 03/14/2022 Active SUMAtriptan (IMITREX) 100 mg tablet Take 100 mg by mouth. 09/25/2021 Active pantoprazole (PROTONIX) 40 mg Tablet, Delayed Release (E.C.) Take 40 mg by mouth daily. Active aspirin (ECOTRIN EC) 81 mg Tablet, Delayed Release (E.C.) Take 81 mg by mouth daily. Active Active Problems No known active problems Family History Medical History Relation Name Comments Diabetes Mother Relation Name Status Comments Brother Alive Daughter Alive Father Mother Alive Son 1 Alive Son 2 Alive Social History Tobacco Use Types Packs/Day Years Used Date Smoking Tobacco: Never Smokeless Tobacco: Never Alcohol Use Standard Drinks/Week Comments Yes 0 (1 standard drink = 0.6 oz pur e alcohol) occasional Comments Unknown Sex and Gender Information Value Date Recorded Sex Assigned at Not on file Legal Sex Female 11:31 AM SHERIFFS Gender Identity Not on file Sexual Orientation Not on file Last Filed Vital Signs Vital Sign Reading Time Taken Comments Blood Pressure 140/79 11/18/2023 10:35 AM SHERIFFS Pulse 65 11/18/2023 10:29 AM SHERIFFS Temperature 36.3 C (97.3 F) 11/18/2023 10:29 AM SHERIFFS Respiratory Rate 10 11/18/2023 10:29 AM SHERIFFS Oxygen Saturation - - Inhaled Oxygen Concentration - - Weight 137.4 kg (303 lb) 11/18/2023 10:29 AM SHERIFFS Height 165.1 cm (5' 5) 11/18/2023 10:29 AM SHERIFFS Body Mass Index 50.42 11/18/2023 10:29 AM SHERIFFS Plan of Treatment Health Maintenance Due Date Last Done Comments HEPATITIS B VACCINES (1 of 3 - 19+ 3-dose series) 1986 HPV/Cotest (21-29) 1988 CERVICAL CANCER SCREENING 1997 HPV/Cotest (30-65) 1997 PAP SMEAR 1997 COLORECTAL SCREENING 2012 Colorectal Cancer Screening 2012 FIT-DNA Q 3 years 2012 FIT/FOBT Q 1 year 2012 Flex Sig/CT Colonography Q 5 years 2012 BREAST CANCER SCREENING 05/01/2024 05/01/20 23, 05/01/2023, 05/02/2021, Additional history exists INFLUENZA VACCINE (#1) 2025 2, 09/25/2021, 09/23/2020, Additional history exists COVID-19 Vaccine (3 - 2024-2 6 season) 2025 03/19/2021, 02/27/2021 DTAP/TDAP/TD VACCINES (2 - T d or Tdap) 09/12/2028 09/12/2018 ZOSTER VACCINE Completed 04/21/2022, 01/13/2022 Insurance [employer] BLUE ACCESS/TRUE BLUE PPO Care Teams Customer Success Specialist Relationship Specialty Start Date End Date Jared Bronson MD [address] [place] [address] PCP - General Family Practice 11/15/23
--- OUTSIDE RECORDS SUMMARY | 2025-08-11 16:17 | XMS_ITS | Clinical Summary ---
Author Organization [facility] Care Team Providers Care Risk Control Analyst Name Role Phone Unavailable Primary Care Provider Unavailabl e Social History Tobacco Use Types Packs/Day Years Used Date Smoking Tobacco: Never Assessed Comments Unknown Sex and Gender Information Value Date Recorded Sex Assigned at Not on file Legal Sex Female 8:55 AM VBA DEVELOPER Gender Identity Not on file Sexual Orientation Not on file Plan of Treatment Health Maintenance Due Date Last Done Comments Hepatitis C Virus (HCV) Screening 1967 TdaP Immunization 1967 Hepatitis B Immunization (1 of 3 - 19+ 3-dose series) 1986 Pap Smear 1988 Cervical Cancer Screening (CCS) 1997 HPV/Cotest 1997 Cologuard 2012 Colonoscopy 2012 Colorectal Cancer Screening 2012 Immunochemical Fecal Occult Blood 2012 Pneumococcal Immunization (5 0+ years) (2 of 2 - PCV) 2017 01/16/2008 Zoster Immunization (1 of 2) 2017 SARS-COV-2 Immunization ( season) 2024 Influenza Immunization (#1) 08/02/202509/01, 08/22/2009, 01/16/2008 Respiratory Syncytial Virus (RSV) Immunization (Adult) (1 - 1-dose 75+ series) 2042 Pneumococcal Immunization Combined Discontinued 01/16/2008 Human Papillomavirus (HPV) Immunization Aged Out No longer eligible based on patient's age to complete this topic Meningococcal Immunization (ACWY) Aged Out No longer eligible based on patient's age to complete this topic Rotavirus Immunization Aged Out No lo nger eligible based on patient's age to complete this topic
--- OUTSIDE RECORDS SUMMARY | 2025-08-11 16:17 | XMS_ITS | Clinical Summary ---
Author Organization [facility] Address [address] [place] [address] Care Team Providers Care Housing Project Manager Name Role Phone Aft, Keren Joseph MD PhD Unavailable [phone] Marcelo Elena MD Unavailable [phone] No, Physician Primary Care Provider [phone] Allergies No known active allergies Medications fexofenadine (DONALD) 180 mg tablet TAKE 1 TABLET DAILY NEEDED. Active SUMAtriptan (IMITREX) 100 mg tabletIndications :Migraine Take 1 tablet (100 mg total) by mouth once as needed for migraine for up to 1 dose 9 tablet 3 1 Active folic acid (FOLVITE) 1 mg tabletIndications :Folic acid deficiency TAKE 1 TABLET(1 MG) BY MOUTH DAILY 90 tablet 2 Active levothyroxine (SYNTHROID) 25 mcg tabletIndications :Hypothyroidism, unspecified type TAKE 1 TABLET(25 MCG) BY MOUTH DAILY 90 tablet 2 Active lisinopril-hydroC HLOROthiazide (ZESTORETIC) 20-12.5 mg per tabletIndications :hypertension TAKE 2 TABLETS BY MOUTH DAILY 180 tablet 2 Active metoprolol XL (TOPROL-XL) 100 mg 24 hr tabletIndications :Essential hypertension TAKE 1 TABLET(100 MG) BY MOUTH DAILY 90 tablet 2 Active amLODIPine (NORVASC) 5 mg tabletIndications :Primary hypertension Take 1 tablet (5 mg total) by mouth daily 90 tablet 3 Active gabapentin (NEURONTIN) 600 mg tabletIndications :Neuropathic pain syndrome (non-herpetic) TAKE 1 TABLET(600 MG) BY MOUTH TWICE DAILY 28 tablet 3 Active Active Problems Problem Noted Date Diagnosed Date Other nonspecific abnormal finding of lung field 12/27/2023 Migraine without aura 03/06/2018 Assessment & Plan (01/24/2023 2:13 PM FOREIGN COLLECTION CLERK): Intermittent, but fair control. Continue current regimen. Assessment & Plan (09/25/2021 11:15 AM CDT): Intermittent, but fair control. Continue current regimen. Assessment & Plan (09/23/2020 10:03 AM CDT): Intermittent, but good control. Continue current regimen. Assessment & Plan (03/23/2020 11:14 AM CDT): Intermittent, but good control. Continue current regimen. Assessment & Plan (09/22/2019 11:06 AM CDT): Intermittent. Fair control. Continue current regimen. Assessment & Plan (06/03/2019 2:46 PM CDT): Intermittent. Controlled on current regimen. Assessment & Plan (09/12/2018 11:44 AM CDT): Headaches are infrequent.. Continue current treatment regimen. 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 Continue current treatment regimen. Regular aerobic exercise. Psychological condition will be reassessed at the next regular appointment. Assessment & Plan (03/22/2021 11:25 AM CDT): Depression is improving with treatment. Continue current treatment regimen. Regular aerobic exercise. Psychological condition will be reassessed at the next regular appointment. Assessment & Plan (09/23/2020 10:16 AM CDT): Depression is improving with treatment. Continue current treatment regimen. Regular aerobic exercise. Psychological condition will be reassessed at the next regular appointment. Assessment & Plan (03/23/2020 11:09 AM CDT): Depression is improving with treatment. Continue current treatment regimen. Regular aerobic exercise. Psychological condition will be reassessed at the next regular appointment. Assessment & Plan (09/22/2019 11:05 AM CDT): Depression is improving with treatment. Continue current treatment regimen. Regular aerobic exercise. Psychological condition will be reassessed at the next regular appointment. Assessment & Plan (06/03/2019 2:45 PM CDT): Psychological condition is fair control.. Continue current treatment regimen. Regular aerobic exercise. Psychological condition will be reassessed at the next regular appointment. Assessment & Plan (09/12/2018 11:43 AM CDT): Psychological condition is improving with treatment. Continue current treatment regimen. Psychological condition will be reassessed at the next regular appointment. History of adenomatous polyp of colon 04/18/2015 Assessment & Plan (09/12/2018 11:43 AM CDT): Request colonoscopy report. Folic acid deficiency 12/20/2014 Assessment & Plan (01/24/2023 2:29 PM FOREIGN COLLECTION CLERK): Continue current regimen. Hypothyroidism 09/07/2014 Assessment & Plan (01/24/2023 2:13 PM FOREIGN COLLECTION CLERK): Clinically euthyroid. Check labs and adjust regimen accordingly. Assessment & Plan (12/26/2021 10:39 AM FOREIGN COLLECTION CLERK): Subclinical per recent TFT T4 levels remain WNL Cont current levo dosing RTC 4 months w/ OV & labs Assessment & Plan (09/25/2021 11:15 AM CDT): Clinically euthyroid. Check labs and adjust regimen accordingly. Assessment & Plan (03/22/2021 11:25 AM CDT): Clinically euthyroid. Check labs and adjust regimen accordingly. Assessment & Plan (09/23/2020 10:03 AM CDT): Clinically euthyroid. Check labs and adjust regimen accordingly. Assessment & Plan (03/23/2020 11:10 AM CDT): Clinically euthyroid. Check labs and adjust regimen accordingly. Assessment & Plan (09/22/2019 11:05 AM CDT): Clinically euthyroid. Mild TSH elevation. Continue current regimen. Recheck 6 months. Assessment & Plan (06/03/2019 2:45 PM CDT): Clinically euthyroid. Check labs and adjust regimen accordingly. Assessment & Plan (09/12/2018 11:44 AM CDT): Clinically euthyroid. Check labs and adjust regimen accordingly. Impaired fasting glucose 08/17/2014 Assessment & Plan (01/24/2023 2:19 PM FOREIGN COLLECTION CLERK): Impaired Fasting Glucose is stable Counseled on regular aerobic exercise, including walkig, jogging, targeting 10K- 20K step equivalent daily., Counseled on low carbohydrate diet and Counseled on intermittent fasting diet. Follow up at the next regular appointment Assessment & Plan (09/25/2021 11:17 AM CDT): Impaired Fasting Glucose is stable Counseled on regular aerobic exercise, including walkig, jogging, targeting 10K- 20K step equivalent daily., Counseled on low carbohydrate diet and Counseled on intermittent fasting diet. Follow up at the next regular appointment Assessment & Plan (03/22/2021 11:30 AM CDT): Impaired Fasting Glucose is stable Counseled on regular aerobic exercise, including walkig, jogging, targeting 10K- 20K step equivalent daily., Counseled on low carbohydrate diet and Counseled on intermittent fasting diet. Follow up at the next regular appointment Assessment & Plan (09/23/2020 10:13 AM CDT): Impaired Fasting Glucose is stable Counseled on regular aerobic exercise, including walkig, jogging, targeting 10K- 20K step equivalent daily., Counseled on low carbohydrate diet and Counseled on intermittent fasting diet. Follow up at the next regular appointment Assessment & Plan (09/22/2019 10:59 AM CDT): Mild FPG and HBA1c elevation. Counseled on exercise, diet. Recheck 6 months Assessment & Plan (06/03/2019 2:44 PM CDT): Stable. Counseled on exercise, diet. Assessment & Plan (09/12/2018 11:44 AM CDT): Counseled on exercise, diet. Thrombocytosis 08/17/2014 Assessment & Plan (01/24/2023 2:13 PM FOREIGN COLLECTION CLERK): Mild platelet elevation. This has been chronic and stable. Continue periodic monitoring. Assessment & Plan (09/25/2021 11:15 AM CDT): Mild platelet elevation. This has been chronic and stable. Continue periodic monitoring. Assessment & Plan (03/22/2021 11:26 AM CDT): Mild platelet elevation. This has been chronic and stable. Continue periodic monitoring. Assessment & Plan (09/23/2020 10:03 AM CDT): Mild platelet elevation. This has been chronic and stable. Continue periodic monitoring. Assessment & Plan (09/22/2019 11:06 AM CDT): Mild platelet elevation. This has been chronic and stable. Continue periodic monitoring. Assessment & Plan (09/12/2018 11:45 AM CDT): Mild when last checked. Continue to monitor. Hay fever 08/09/2014 Hypertension 08/09/2014 Assessment & Plan (01/24/2023 2:26 PM FOREIGN COLLECTION CLERK): Hypertension is worsening Dietary sodium restriction. Weight loss. Regular aerobic exercise. Medication changes per orders. Blood pressure will be reassessed in 3 months. Increase dose amlodipine. Assessment & Plan (12/26/2021 10:32 AM FOREIGN COLLECTION CLERK): Hypertension is improved w/ medication changes Cont current regimen, lifestyle modifications Blood pressure will be reassess 4 months Recent CMP reviewed and in NL Assessment & Plan (09/25/2021 11:11 AM CDT): Hypertension is worsening Continue current treatment regimen. Weight loss. Regular aerobic exercise. Medication changes per orders. Blood pressure will be reassessed in 3 months. Add amlodipine. Assessment & Plan (03/22/2021 11:25 AM CDT): Hypertension is stable Continue current treatment regimen. Dietary sodium restriction. Weight loss. Regular aerobic exercise. Continue current medications. Blood pressure will be reassessed at the next regular appointment. Assessment & Plan (09/23/2020 10:02 AM CDT): Hypertension is stable Continue current treatment regimen. Weight loss. Regular aerobic exercise. Continue current medications. Blood pressure will be reassessed at the next regular appointment. Assessment & Plan (03/23/2020 11:10 AM CDT): Hypertension is stable Continue current treatment regimen. Weight loss. Regular aerobic exercise. Continue current medications. Ambulatory blood pressure monitoring. Blood pressure will be reassessed at the next regular appointment. Assessment & Plan (09/22/2019 11:04 AM CDT): Hypertension is controlled Continue current treatment regimen. Dietary sodium restriction. Weight loss. Regular aerobic exercise. Continue current medications. Blood pressure will be reassessed at the next regular appointment. Assessment & Plan (06/03/2019 2:48 PM CDT): Hypertension is worsening. Weight loss. Regular aerobic exercise. Medication changes per orders. Blood pressure will be reassessed in 3 months. Increase dose lisinopril/HCTZ. Assessment & Plan (09/12/2018 11:45 AM CDT): Hypertension is borderline.. Continue current treatment regimen. Regular aerobic exercise. Continue current medications. Blood pressure will be reassessed at the next regular appointment. Neuropathic foot pain syndrome (non-herpetic) Assessment & Plan (09/25/2021 11:16 AM CDT): Bilateral feet. Fair control. Continue gabapentin. Assessment & Plan (09/12/2018 11:47 AM CDT): Located in bilateral feet. Controlled on gabapentin. Assessment & Plan (06/26/2018 11:22 AM CDT): Worsening. We discussed options. Increase gabapentin. Osteoarthritis 08/09/2014 Obesity 08/09/2014 Assessment & Plan (01/24/2023 2:12 PM FOREIGN COLLECTION CLERK): Obesity is unchanged. Discussed the patient's BMI. The BMI is above average; BMI management plan is completed. General weight loss/lifestyle modification strategies discussed (elicit support from others; identify saboteurs; non-food rewards, etc). Assessment & Plan (09/25/2021 11:02 AM CDT): Obesity is unchanged. Discussed the patient's BMI. The BMI is above average; BMI management plan is completed. General weight loss/lifestyle modification strategies discussed (elicit support from others; identify saboteurs; non-food rewards, etc). Counseled on dietary options including mediterranean diet and intermittent fasting Assessment & Plan (03/22/2021 11:22 AM CDT): Obesity is improving with lifestyle modifications. Discussed the patient's BMI. The BMI is above average; BMI management plan is completed. General weight loss/lifestyle modification strategies discussed (elicit support from others; identify saboteurs; non-food rewards, etc). Counseled on dietary options including mediterranean diet and intermittent fasting Assessment & Plan (09/23/2020 10:02 AM CDT): Obesity is unchanged. Discussed the patient's BMI. The BMI is above average; BMI management plan is completed. General weight loss/lifestyle modification strategies discussed (elicit support from others; identify saboteurs; non-food rewards, etc). Counseled on dietary options including mediterranean diet and intermittent fasting Assessment & Plan (09/22/2019 10:54 AM CDT): Obesity is severe. Discussed the patient's BMI. The BMI is above average; BMI management plan is completed. General weight loss/lifestyle modification strategies discussed (elicit support from others; identify saboteurs; non-food rewards, etc). Counseled on dietary options including mediterranean diet and intermittent fasting Assessment & Plan (06/03/2019 2:46 PM CDT): Obesity is severe. Discussed the patient's BMI. The BMI is above average; BMI management plan is completed. General weight loss/lifestyle modification strategies discussed (elicit support from others; identify saboteurs; non-food rewards, etc). Assessment & Plan (09/12/2018 11:35 AM CDT): Obesity is unchanged. Discussed the patient's BMI. The BMI is above average; BMI management plan is completed. General weight loss/lifestyle modification strategies discussed (elicit support from others; identify saboteurs; non-food rewards, etc). Informal exercise measures discussed, e.g. taking stairs instead of elevator. Regular aerobic exercise program discussed. Resolved Problems Problem Noted Date Diagnosed Date Resolved Date Breast mass seen on mammogram 01/20/2018 09/12/2018 Assessment & Plan (09/12/2018 11:38 AM CDT): Benign biopsy. Anemia 10/02/2016 09/12/2018 Monoclonal gammopathy 12/20/20142017 Encounters Date Type Department Care Team Description 06/02/2025 7:48 AM CDT - 06/02/2025 11:59 PM CDT Hospital Encounter [facility] [id number] [place] [id number] Other nonspecific abnormal finding of lung field Discharge Disposition: Discharge to home or self care from Last 3 Months Immunizations Immunization Administration Dates Next Due Influenza, Quadrivalent, [place] Culture-based MDCK, Preservative Free, Antibiotic Free, Intramuscular 09/14/2022 Influenza, Quadrivalent, Rec ombinant, Egg Free, Preservative Free, Intramuscular 09/12/2018 Influenza, Quadrivalent, Spl it, Preservative Free, Intramuscular 09/25/2021,09/23/2020,09/22/2019,09/07 Influenza, Trivalent, High D ose, Split, Preservative Free, Intramuscular 08/22/2009,01/16/2008 Influenza, Trivalent, Preser vative Free, Intramuscular 09/11/2013 Influenza, Trivalent, Split, Preservative Free, Intradermal 09/10/2017,09/11/2016,09/07/2014 Pfizer SARS-CoV-2 Monovalent Vaccination (12+ Yrs) PURPLE 03/19/2021,02/27/2021 Pneumococcal Polysaccharide PPV23 11/01/2016, Tdap 09/12/2018 ZOSTER Recombinant 04/21/2022,01/13/2022 Surgical History Surgery Date Site/Laterality Comments [place] CHOLECYSTECTOM[place] Cholecystectomy - (Added by TW Conv) [place] TONSILLECTOM[place] PRIMARY/SEC ONDARY <AGE 12 Tonsillectomy - (Added by TW Conv) [place] DILATION & CURETTAGE DX&/ THER NONOBSTETRIC Dilation And Curettage - (Added by TW Conv) Medical History Medical History Date Comments Abnormal findings on diagnos tic imaging of other parts of musculoskeletal system Abnormal MRI, cervical spine - Has large HNP at C5/6 that may explain her current symptoms. (Added by TW Conv) Other abnormal findings on d iagnostic imaging of central nervous system Abnormal brain MRI - Findings from 01/2016 brain MRI are more suggestive of vascular disease than demyelinating disease. (Added by TW Conv) Pneumonia CAP (community a cquired pneumonia) - (Added by TW Conv) Peripheral neuropathy Seasonal allergies Family History Medical History Relation Name Comments Cirrhosis Father Diabetes Mother Heart disease Mother's Brother Diabetes Mother's Sister Heart disease Mother's Sister Diabetes Paternal Grandmother Relation Name Status Comments Daughter Father Mother Mother's Brother Mother's Sister Paternal Grandmother Social History Tobacco Use Types Packs/Day Years Used Date Smoking Tobacco: Never Smokeless Tobacco: Never Alcohol Use Standard Drinks/Week Comments Yes 0 (1 standard drink = 0.6 oz pur e alcohol) 1 monthly or less AUDIT-C Answer Date Recorded Q1: How often do you have a drink containing alc ohol? Never 12/23/2023 Average Number of Drinks Not on file Frequency of Binge Drinking Not on file 12/03 PHQ-2 Answer Date Recorded PHQ-2 Total Score (If total score is 3 or more points, staff should administer the PHQ-9) 0 01/24/2023 Exercise Vital Sign Answer Date Recorde d On average, how many days pe r week do you engage in moderate to strenuous exercise (like a brisk walk)? 7 days 01/24/2023 On average, how many minutes do you engage in exercise at this level? 10 min 01/24/2023 Personal Safety Answer Date Recorded Have you ever been in or are you currently in a harmful physical or emotional relationship or is someone making you feel afraid or unsafe? 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 Not on file Not on niru e Obstetrics History Last Filed Vital Signs Vital Sign Reading Time Taken Comments Blood Pressure 128/87 12/23/2023 1:20 PM FOREIGN COLLECTION CLERK Pulse 55 12/23/2023 1:20 PM FOREIGN COLLECTION CLERK Temperature 36.9 C (98.4 F) 12/26/2021 10:06 AM FOREIGN COLLECTION CLERK Respiratory Rate 13 12/23/2023 1:20 PM FOREIGN COLLECTION CLERK Oxygen Saturation 99% 12/23/2023 1:20 PM FOREIGN COLLECTION CLERK Inhaled Oxygen Concentration - - Weight 138.1 kg (304 lb 8 oz) 01/24/2023 1:47 PM FOREIGN COLLECTION CLERK Height 165.1 cm (5' 5) 01/24/2023 1:47 PM FOREIGN COLLECTION CLERK Body Mass Index 50.67 01/24/2023 1:47 PM FOREIGN COLLECTION CLERK Plan of Treatment Scheduled Procedures Name Priority Associated Diagnoses Date/Ti me COLONOSCOPY History of adenomatous polyp of colon Health Maintenance Due Date Last Done Comments Cervical Cancer Screening 1967 Hepatitis C Screening 1967 Hepatitis B Screening 1985 Pneumococcal vaccine <65 (3 of 3 - PCV) 11/01/2017 11/01/2016, 01/16/2008 Colon Cancer Screening-Colonoscopy 04/13/2020 04/13/2015 Depression Screening 01/24/2024 01/24/2023, 09/25/2021, 09/23/2020, Additional history exists Regular Well Visit/Exam 18-64 01/24/2024, 09/25/2021, 09/23/2020, Additional history exists Breast Cancer Screening-Mammogram 05/01/2024 05/01/2023, 05/01/2023, 05/01/2023, Additional history exists Covid-19 Vaccine (5 - 2024-2 6 season) 2025 09/14/2022, 12/30/2021, 03/19/2021, Additional history exists Influenza Vaccine (#1) 2025 , 09/25/2021, 09/23/2020, Additional history exists DTaP/Tdap/Td Vaccine (2 - Td or Tdap) 09/12/2028 09/12/2018 Colon Cancer Screening-CT Colonography Discontinued 04/13/2015 Colon Cancer Screening-DNA Stool Discontinued 04/13/20 15 Colon Cancer Screening-FIT Discontinued 04/13/2015 Colon Cancer Screening-Sigmoidoscopy Discontinued 04/13/2015 Zoster Vaccine Completed 04/21/2022, 01/13/2022 Procedures Procedure Name Priority Date/Time Associated Diagnosis Comments CT CHEST WO CONTRAST Schedule Routine, Read Routine (OP Routine) 06/02/2025 8:01 AM CDT Other nonspecific abnormal finding of lung field SCREENING MAMMOGRAM BILATERAL W CHTEAN Schedule Routine, Read Routine (OP Routine) 05/02/2021 1:10 PM CDT Encounter for screening mammogram for malignant neoplasm of breast HM COLONOSCOPY Routine 04/13/2015 from Last 3 Months or Most Recently Relevant to Health Maintenance Results * CT Chest WO Contrast (06/02/2025 8:01 AM CDT) Anatomical Region Laterality Modality Body N/A Computed Tomogra phy 06/02/2025 4:54 PM CDT Impressions 06/02/2025 4:54 PM CDT Small stable ill-defined lower lobe prominent peribronchial vascular groundglass nodules. Electronically signed by: Talisha Giron M.D. Narrative 06/02/2025 4:54 PM CDT Examination: CT CHEST WO CONTRAST Date: 06/02/2025 9:00 AM Clinical History: ABNORMAL FINDINGS OF LUNG FIELD Technique: Computed tomographic images of the chest were obtained in the axial plane without the administration of contrast. 2-D Coronal and sagittal reformatted images were performed. Comparison: CT chest 11/11/2024 Findings: There is no mediastinal lymphadenopathy. Calcified mediastinal and right hilar nodes are present.. Normal heart size noted without pericardial effusion..Normal caliber aorta noted. Mild residual scattered ill-defined subcentimeter peribronchovascular groundglass opacities and nodules again noted especially in the lower lobes worse right in the dependent aspect of the upper lobes. For reference there is a 4 mm right lower lobe groundglass nodule image 73 of series 3 and a 2 mm nodule on image 71 which are unchanged. A small right apical 4 mm nodule image 17 is unchanged.. The bony thorax is unremarkable.. Calcified hepatic and splenic granulomas are again seen.. Procedure Note Talisha Giron MD - 06/02/2025 Examination: CT CHEST WO CONTRAST Date: 06/02/2025 9:00 AM Clinical History: ABNORMAL FINDINGS OF LUNG FIELD Technique: Computed tomographic images of the chest were obtained in the axial plane without the administration of contrast. 2-D Coronal and sagittal reformatted images were performed. Comparison: CT chest 11/11/2024 Findings: There is no mediastinal lymphadenopathy. Calcified mediastinal and right hilar nodes are present.. Normal heart size noted without pericardial effusion..Normal caliber aorta noted. Mild residual scattered ill-defined subcentimeter peribronchovascular groundglass opacities and nodules again noted especially in the lower lobes worse right in the dependent aspect of the upper lobes. For reference there is a 4 mm right lower lobe groundglass nodule image 73 of series 3 and a 2 mm nodule on image 71 which are unchanged. A small right apical 4 mm nodule image 17 is unchanged.. The bony thorax is unremarkable.. Calcified hepatic and splenic granulomas are again seen.. IMPRESSION: Small stable ill-defined lower lobe prominent peribronchial vascular groundglass nodules. Electronically signed by: Talisha Giron M.D. Yasir Johnson MD IMG CT PROCEDURES Final Result * Screening Mammogram Bilateral W Chetan (05/02/2021 1:10 PM CDT) Anatomical Region Laterality Modality Breast Bilateral Mammography Narrative 05/03/2021 1:32 PM CDT Mammogram Technique: Bilateral Digital Breast Tomosynthesis, Bilateral C-view 2D Screening mammogram. Views obtained: bilateral craniocaudal and bilateral mediolateral oblique. Computer Aided Detection was performed. Mammogram Findings: The present examination has been compared to prior imaging studies performed at [facility] on 01/20/2018, and at [facility] on 09/11/2016 and 09/22/2019. There are scattered areas of fibroglandular density. There is no suspicious abnormality in either breast. Impression: There is no mammographic evidence of malignancy. Annual screening mammography is recommended. OVERALL FINAL ASSESSMENT: BI-RADS CATEGORY 1: Negative. Procedure Note Angelina Kearney MD - 05/03/2021 Mammogram Technique: Bilateral Digital Breast Tomosynthesis, Bilateral C-view 2D Screening mammogram. Views obtained: bilateral craniocaudal and bilateral mediolateral oblique. Computer Aided Detection was performed. Mammogram Findings: The present examination has been compared to prior imaging studies performed at [facility] on 01/20/2018, and at [facility] on 09/11/2016 and 09/22/2019. There are scattered areas of fibroglandular density. There is no suspicious abnormality in either breast. Impression: There is no mammographic evidence of malignancy. Annual screening mammography is recommended. OVERALL FINAL ASSESSMENT: BI-RADS CATEGORY 1: Negative. us Sharif Bishop MD IMG MAMMO PROCEDURES Ligia l Result * COLONOSCOPY (04/13/2015) Colonoscopy Abnormal Historical Provider HEALTH MAINTENANCE Final Result from Last 3 Months or Most Recently Relevant to Health Maintenance Insurance [employer] MD [employer] MD [employer] MD [facility] Care Teams Housing Project Manager Relationship Specialty Start Date End Date No, Physician PCP - General 03/16/24 Aft, Keren Joseph MD PhD [address] [place] [address] Surgeon Surgical Oncology 09/10/18 [place] [id number] * [place] [address] Consulting Physician Gastroenterology 09/15/18
== END 2025-08-11 16:14 | disposition home or self-care (01) ==
PROVIDERS: PCP Family Medicine
DX: M54.9 Dorsalgia, unspecified (principal)
CPT/HCPCS: 72100